=== PATIENT | male | born 1985 ===

== ENCOUNTER 2016-05-11 01:26 | Emergency (ER) | payer OTHER ==
[2016-05-11 01:41] VITALS: BP 147/90; PULSE 95; RESP 18; O2SAT 100
--- NOTE | 2016-05-11 03:54 | ED.REPORT ---
HPI-General Illness Date of Service May 11, 2016 ED Provider: Vic Yeager MD Patient is a 31 year old male with a history of polysubstance abuse who presents to the ED requesting Suboxone, with last heroin use 5 hours prior to arrival. The patient smokes heroin and admits using methamphetamine occasionally. Patient states that he was previously seen at the [facility] for Suboxone. Patient denies any withdrawal symptoms at this time. Patient is sleeping prior to initial evaluation and is unable to awake fully to participate in the exam. History is limited. Nursing Notes Stated Complaint: SUBSTANCE ABUSE Chief Complaint: Substance Abuse Nursing Notes Reviewed: Yes Allergies: Coded Allergies: No Known Allergies (Unverified , 11/23/11) Scheduled Buprenorphine HCl/Naloxone HCl (Suboxone 8 mg-2 mg Sl Film) 1 Each Film 1 EACH SL BID General Time Seen by MD: 03:52 Chief Complaint Other (heroin withdrawal) Hx Obtained From: Patient Unable to Obtain Hx: Patient condition (limited) Arrived By: Walk-in Sudden in Onset?: No Onset Occurred: 5 - 8 hours ago Symptom Duration: Since onset Severity: Current: No pain currently Severity: Maximum: No pain Recent Healthcare: No recent doctor visit, No recent hospitalization Similar Sx Previous: Yes Past Medical History Past Medical History heroin abuse methamphetamine abuse Past Surgical History none reported Smoking History Unknown if Ever Smoker Social History Drug Use: Meth, Other (heroin (smokes)) Other Social History: Local resident Ambulatory Status Independent Review of Systems Unable to Obtain ROS Patient condition (limited), Intoxicated Physical Exam Vital Signs Vital Signs Date Time Temp Pulse Resp B/P Pulse Ox O2 Delivery O2 Flow Rate FiO2 05/11/16 01:41 36.7 95 18 147/90 100 Room Air Initial VS: Reviewed, Vital signs abnormal Head / Eyes: Atraumatic, Normocephalic, PERRL ENT: Conjunctiva normal, No scleral icterus Neck: Supple, Full range of motion Neurologic: Alert, Nonfocal General/Constitutional: No acute distress Alertness: Positive: Sleeping but arousable Respiratory / Chest: Breath sounds NL, Breath sounds = bilat, No respiratory distress, No rales, No rhonchi, No wheezing Cardiovascular: Heart rate NL, Regular rhythm, Heart sounds NL, No murmurs Heart Rate / Rhythm: Negative: Tachycardia Abdomen: Soft, Non-tender Skin: Warm, Dry Rash / Lesion Pattern: Negative: Track dudley Re-Eval/Medical Decision Med Decision/Clinical Course This patient uses IV heroin and methamphetamine. He desires to detox. He is familiar with the medication Suboxone. She was given a 5 day prescription of Suboxone and the Priority Access Appointment Line for [facility] for a follow- up appointment this week. Source of Hx: Old records Time of Eval: 04:15 Patient Status: Condition improved Re-Evaluation/Progress Note: Patient understands and agrees with the plan to be discharged home. Discharge instructions and follow-up discussed. He has been given a prescription for Suboxone and should follow-up at [facility]. All questions were addressed. Return to the ED warnings given. Counseled Regarding: Diagnosis, Need for follow-up, When/why to return to ED Discharge & Departure Primary Impression: Opioid dependence with withdrawal Disposition: Home Discharge Condition All VS Reviewed: Yes Condition: Stable Patient Instructions: Buprenorphine/Naloxone (By mouth) Additional Instructions: Do not use any more heroin or methamphetamine. 24 hours after your last heroin use, you can start Suboxone 8/2 tabs, one dissolved orally twice daily, #10 prescribed. Call the [facility] Priority Access Appointment Line at [phone] first thing Thursday morning for an appointment to see one of us this week. Referrals: [facility] (PCP) [facility] Attestation Portions of this note were transcribed by Alix Marks. I, Dr. Yeager personally performed the history, physical exam and medical decision-making; I reviewed and confirmed the accuracy of the information in the transcribed note. Signed by: Aleksey Blum, 05/11/2016 [id number] Vic Yeager MD May 11, 2016 03:54 Alix Marks May 11, 2016 04:13
[2016-05-11] MEDS ORDERED: BUPR1FIL3 SL (04:16)
== END 2016-05-11 04:16 | disposition home or self-care (01) ==
LOC: SED 01:26
DX: F11.23 Opioid dependence with withdrawal (principal)